=== PATIENT | male | born 1960 | race African-American/Black ===

== ENCOUNTER 2016-04-17 08:05 | Emergency (ER) | payer OTHER ==
[~2016-04-17] VITALS: Ht 162.6 cm; Wt 90.3 kg
[2016-04-17] MEDS ORDERED: SIMVASTATIN40 M1 PO (09:00)
--- NOTE | 2016-04-17 09:09 | ED GENERAL ADULT ---
History of Present Illness General Chief Complaint: General Adult Stated Complaint: LEFT SIDED BODY PAIN/NUMBNESS (SEEN MD 04/15) Source: patient Exam Limitations: no limitations Vital Signs & Intake/Output Vital Signs & Intake/Output Vital Signs Date Time Temp Pulse Resp B/P Pulse O2 O2 Flow FiO2 Ox Delivery Rate 04/17 1117 96.5 76 18 141/89 96 Room Air 04/17 0858 99 Room Air 04/17 0811 97.0 75 20 135/85 98 Room Air Allergies Coded Allergies: No Known Allergies (04/17/16) Reconcile Medications Simvastatin (Simvastatin*) 40 MG TABLET 1 TAB PO QPM CHOLESTROL (Reported) Triage Note: STATES HE SAW DR OCAMPO YESTERDAY FOR EKG CHANGES. SINCE LAST NIGHT PT HAS HAD NUMBNESS ON LEFT FACE, JAW, NECK DOWN TO LEG. NO FACIAL DROOP, NO SLURRED SPEECH Triage Nurses Notes Reviewed? yes Onset: Gradual Duration: week(s): (1), waxing and waning Timing: multiple episodes today Injury Environment: home Severity: mild No Modifying Factors: none Associated Symptoms: LEFT SIDED BODY PAIN, NECK PAIN, HEADACHE HPI: This is a 56-year-old male with history of high cholesterol on since Wednesday presents to the ER with chief complaint of left sided body pain and weakness has been on and off for the past week. His last night symptoms got more severe. Complains of pain in his head and his neck, left arm and left leg. He states intermittently the extremities feel weak. No numbness but some tingling. Denies any chest pain or shortness of breath. Patient visited his primary care doctor 3 weeks ago for regular appointment and was told at that time he had normal EKG. He was set up to follow up with Dr. Ocampo was on Wednesday. In the office on Wednesday he told me was to be setting him up for 2 outpatient test. Last stress test was in 2012 which she believes was as a result of the abnormal EKG. No documented history of coronary disease. No history of hypertension or diabetes. Patient is a nonsmoker nondrinker. 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 Denies any chest pain or shortness of breath with sterile climbing. Denies family history of cardiac disease. Past History Travel History Traveled to [place] past 21 day No Medical History Any Pertinent Medical History? see below for history Cardiovascular: hyperlipidemia Surgical History Surgical History: none Psychosocial History What is your primary language Ethiopian Tobacco Use: Never used ETOH Use: occasional use Illicit Drug Use: denies illicit drug use Family History Hx Contributory? No Review of Systems Review of Systems Constitutional: Denies: chills, fever. EENTM: Reports: eye pain. Respiratory: Reports: short of breath. Denies: cough. Cardiovascular: Denies: chest pain, palpitations. GI: Denies: abdominal pain. Genitourinary: Reports: no symptoms. Musculoskeletal: Reports: no symptoms. Skin: Reports: no symptoms. Neurological/Psychological: Reports: anxiety, headache. Hematologic/Endocrine: Denies: bruising, bleeding, polyuria, polydipsia. Immunologic/Allergic: Denies: splenectomy. All Other Systems: Reviewed and Negative Physical Exam Physical Exam General Appearance: well developed/nourished, alert, awake Head: atraumatic, normal appearance Eyes: Bilateral: normal appearance, PERRL, EOMI. Ears, Nose, Throat: normal pharynx, normal ENT inspection, hearing grossly normal Neck: normal inspection, supple, full range of motion Respiratory: normal breath sounds, chest non-tender, no respiratory distress Cardiovascular: regular rate/rhythm Peripheral Pulses: 2+ radial (R), 2+ ulnar (L) Gastrointestinal: normal bowel sounds, soft, non-tender Back: normal inspection, normal range of motion Extremities: normal inspection, normal capillary refill, normal range of motion, no edema Neurologic/Psych: no motor/sensory deficits, awake, alert, oriented x 3 Skin: intact, normal color, warm/dry Core Measures ACS in differential dx? Yes ASA ordered for poss ACS? PRIOR TO ARRIVAL CVA/TIA Diagnosis: No Severe Sepsis Present: No Septic Shock Present: No Progress Differential Diagnoses I considered the following diagnoses in my evaluation of the patient: [ami, acs, UNSTABLE ANGINA, CVA, INTRACRANIAL MASS] Plan of Care: Orders Procedure Date/time Status Drains/Tubes 04/17 09 Complete Telemetry/Perfume Maker 04/17 09 Active THYROID STIMULATING HORMONE 04/17 09 Complete TROPONIN LEVEL 04/17 09 Complete PARTIAL THROMBOPLASTIN TIME 04/17 0907 Complete PROTHROMBIN TIME 04/17 0907 Complete LIPID PANEL 04/17 0907 Complete FREE T4 04/17 0907 Complete WESTERGREN SED RATE 02/17 0907 Complete COMPREHENSIVE METABOLIC PANEL 04/17 906 Complete CBC WITHOUT DIFFERENTIAL 04/17 906 Complete EKG 04/17 811 Active Laboratory Tests 04/17/16909: Anion Gap 12, Estimated GFR > 60, BUN/Creatinine Ratio 13.0, Glucose 97, Calcium 9.6, Total Bilirubin 0.5, AST 37, ALT 49, Alkaline Phosphatase 83, Troponin I < 0.01, Total Protein 8.4 H, Albumin 4.8, Globulin 3.6, Albumin/Globulin Ratio 1.3, Triglycerides 170 H, Cholesterol 200, LDL Cholesterol, Calc 126, HDL Cholesterol 40, Cholesterol/HDL Ratio 5 H, TSH 1.950, Free T4 0.91, PT 11.1, INR 1.06, APTT 31, CBC w Diff NO MAN DIFF REQ, RBC 4.98, MCV 90.0, MCH 30.8, RDW 13.6, MPV 7.4, Gran % 35.8 L, Lymphocytes % 51.9 H, Monocytes % 8.5, Eosinophils % 3.4, Basophils % 0.4, Absolute Granulocytes 1.1 L, Absolute Lymphocytes 1.6, Absolute Monocytes 0.3, Absolute Eosinophils 0.1, Absolute Basophils 0, PUBS MCHC 34.2, ESR Westergren 5 EKG, TELE MONITOR, LABS, HEAD CT ORDERED. ASPIRIN TAKEN DENTAL ASSISTANT MEDICAL ASSISTANT. HEAD CT NEGATIVE, LABS WNL. D/W DR LIM. PATIENT IS SCHEDULED FOR AN ECHOCARDIOGRAM AND STRESS TEST. HE BELIEVES THE PATIENT LIKELY HAS HYPERTROPHIC CARDIOMYOPATHY. DISCUSSED RESULTS AND PLAN OF CARE WITH THE PATIENT. (ROS AZEVEDO,DYLAN) Diagnostic Imaging: Viewed by Me: CT Scan. Discussed w/RAD: CT Scan. Radiology Impression: PATIENT: MANUEL GAN PRESENT AGE: 56 PATIENT ACCOUNT NO: [id number] : 62 LOCATION: [facility] ORDERING PHYSICIAN: DYLAN SOMMER MD SERVICE DATE: 04/17/16 EXAM TYPE: CAT - CT HEAD W&WO IV CONTRAST EXAMINATION: CT HEAD WITHOUT AND WITH CONTRAST CLINICAL INFORMATION: Left hemiplegia x1 week. COMPARISON: None TECHNIQUE: Contiguous axial imaging was performed from the skull base to vertex before and after the administration of 100 mL of Optiray 320 intravenous contrast. DLP: 1201.41 mGy-cm FINDINGS: There is no evidence of acute intracranial hemorrhage or territorial infarction. No abnormal mass effect or midline shift is seen. Mckeon to white matter differentiation is well preserved. No extra-axial fluid collections are identified. There is no abnormal enhancement. The ventricles are normal in size. The osseous structures and soft tissues are normal. The mastoid air cells and visualized portions of the paranasal sinuses are well aerated. IMPRESSION: No acute intracranial pathology. DICTATED BY: PARADISE VASQUEZ MD DATE /TIME DICTATED:04/17/161108 LOCOMOTIVE ENGINEER DIESEL:TROY DATE/TIME TRANSCRIBED: 04/17/161108 CONFIDENTIAL, DO NOT COPY WITHOUT APPROPRIATE AUTHORIZATION. < Electronically signed in Other Vendor System> SIGNED BY: PARADISE VASQUEZ MD 04/17/16 1118 Initial ED EKG: NSR, ST depression, t vave inversions, anterolateral leads Prior EKG: changed (from 2003) Rhythm Strip: normal sinus rhythm Departure Departure Time of Disposition: 1159 Disposition: HOME OR SELF CARE Condition: Stable Clinical Impression Primary Impression: ST segment depression Secondary Impressions: T wave inversion in EKG Referrals: JED ALVA MD (PCP/Family) RICHARD OCAMPO MD, V. Additional Instructions: Follow-up with your rn ostomy Dr. Ocampo in the office for outpatient testing as directed. Call Mindi in the office for the stress/echo test date. Return to the ER for any changing or worsening symptoms. Departure Forms: Customer Survey General Discharge Information Critical Care Note Critical Care Note Critical Care Time: non-applicable
[2016-04-17 09:20] LABS: ABSOLUTE BASOPHIL COUNT 0 /CUMM (0.0-0.2); ABSOLUTE EOSINOPHIL COUNT 0.1 /CUMM (0.0-0.7); ABSOLUTE GRANULOCYTE CT 1.1 /CUMM (1.4-6.5); ABSOLUTE LYMPH COUNT 1.6 /CUMM (1.2-3.4); ABSOLUTE MONOCYTE COUNT 0.3 /CUMM (0.10-0.60); BASOPHIL % 0.4 % (0.0-2.0); EOSINOPHIL % 3.4 % (0-5); GRANULOCYTE % 35.8 % (42.2-75.2); HEMATOCRIT 44.8 % (42-52); MEAN CORPUSCULAR HGB 30.8 PG (27.0-31.0); MEAN CORPUSCULAR HGB CONC 34.2 G/DL (33.0-37.0); MEAN PLATELET VOLUME 7.4 FL (7.4-10.4); RBC DISTRIBUTION WIDTH 13.6 % (11.5-14.5); RED BLOOD CELL CT 4.98 /CUMM (4.70-6.10); WHITE BLOOD CELL COUNT 3.1 /CUMM (4.8-10.8)
[2016-04-17 09:29] LABS: PT 11.1 SEC (9.4-12.5); PTT 31 SEC (25-37)
[2016-04-17 09:36] LABS: PLATELET COUNT 230 /CUMM (130-400)
[2016-04-17 11:17] VITALS: BP 141/89
--- NOTE | 2016-04-17 11:18 | CT SCAN REPORT ---
EXAMINATION: CT HEAD WITHOUT AND WITH CONTRAST CLINICAL INFORMATION: Left hemiplegia x1 week. COMPARISON: None TECHNIQUE: Contiguous axial imaging was performed from the skull base to vertex before and after the administration of 100 mL of Optiray 320 intravenous contrast. DLP: 1201.41 mGy-cm FINDINGS: There is no evidence of acute intracranial hemorrhage or territorial infarction. No abnormal mass effect or midline shift is seen. Mckeon to white matter differentiation is well preserved. No extra-axial fluid collections are identified. There is no abnormal enhancement. The ventricles are normal in size. The osseous structures and soft tissues are normal. The mastoid air cells and visualized portions of the paranasal sinuses are well aerated. IMPRESSION: No acute intracranial pathology.
== END 2016-04-17 12:13 ==
LOC: ERH 08:05
PROVIDERS: Emergency Medicine
DX: R94.31 Abnormal electrocardiogram [ECG] [EKG] (principal)
CPT/HCPCS: 93005; 93010